=== PATIENT | female | born 1985 | race Caucasian/White ===

== ENCOUNTER 2021-05-05 10:09 | Emergency (ER) | payer SELFPAY ==
[~2021-05-05] VITALS: Ht 162.6 cm; Wt 68.7 kg
[2021-05-05] MEDS ORDERED: DOXYCYCLINE HY100 MG PO (10:50)
== END 2021-05-05 11:06 | disposition home or self-care (01) ==
LOC: FSED 10:48
DX: T63.461A Toxic effect of venom of wasps, accidental (unintentional), initial encounter (principal)
CPT/HCPCS: 99282

== ENCOUNTER → 2022-09-20 | Outpatient (CLI) | payer OTHER ==
[~2022-09-20] MED LIST: DOXYCYCLINE HY100 MG PO; IOPAMIDOL 370 MG/ML 100 ML INFUS..BTL INJ ONE
== END ==
LOC: CT 15:52
PROVIDERS: ATTEND Surgery
DX: R10.31 Right lower quadrant pain (principal)
CPT/HCPCS: 72193; 81025; Q9967